=== PATIENT | male | born 1950 | race Caucasian/White ===

== ENCOUNTER → 2017-04-10 | Outpatient (CLI) | payer MEDICARE, BC ==
[2017-04-10 15:05] LABS: Basophils % (A) 1 %; Eosinophils # (A) 0.2 k/uL (0-0.7); Eosinophils % (A) 4 %; HCT 48.3 % (39.0-53.0); HGB 16.2 gm/dL (13.0-17.5); Lymphocytes % (A) 20 %; MCH 31.1 pg (25.0-35.0); MCHC 33.5 g/dL (31.0-37.0); MCV 92.9 fL (80.0-100.0); Mean Platelet Volume 6.9; Monocytes # (A) 0.5 k/uL (0-1.0); Monocytes % (A) 10 %; Neutrophils % (A) 63 %; Platelet Count 156 k/uL (150-450); WBC 4.7 k/uL (3.8-10.6)
[2017-04-10 15:22] LABS: Anion Gap 8 mmol/L; Blood Urea Nitrogen 19 mg/dL (9-20); Calcium 9.6 mg/dL (8.4-10.2); Carbon Dioxide 30 mmol/L (22-30); Chloride 104 mmol/L (98-107); Glucose 98 mg/dL (74-99); Potassium 4.5 mmol/L (3.5-5.1); Sodium 142 mmol/L (137-145)
== END | disposition home or self-care (01) ==
LOC: LABWHC1 14:19
PROVIDERS: ATTEND Dermatology
DX: L20.89 Other atopic dermatitis (principal)
CPT/HCPCS: 36415; 80048; 85025; 86480

== ENCOUNTER 2022-04-10 13:54 | Emergency (ER) | payer MEDICARE, BC ==
[2022-04-10 14:13] VITALS: TEMP 98.7
--- NOTE | 2022-04-10 14:14 | ED ---
General Adult HPI - General Source: patient, RN notes reviewed Mode of arrival: ambulatory Limitations: no limitations <Chriss Morris - Last Filed: 04/10/22 14:13> - General Source: patient, RN notes reviewed Mode of arrival: ambulatory Limitations: no limitations <Toyin Samuels - Last Filed: 04/14/22 18:33> - General Stated complaint: Covid+,YI Time Seen by Provider: 04/10/22 14:13 - History of Present Illness Initial comments: 69-year-old male presents emergency Department chief complaint of cough, shortness breath and 6-7 days. Patient states that he was seen at urgent care was placed on Augmentin. Patient states that he does some so for covert twice yesterday is positive. Patient states she's having some shortness of breath. Patient does admit that he's had open-heart surgery family is concerned. Patient denies any GI symptoms. Denies recent fever but states that he's felt hot and cold, mildly productive cough, shortness breath. (Chriss Morris) 69-year-old male presents to the emergency Department with complaints of cough and worsening shortness of breath with activity. States he has been feeling poorly for over a week. Has been taking the antibiotic as prescribed by urgent care. Reports symptoms have not improved. Decided to Covid test at home and it was positive. Complains of poor appetite, but has not had nausea or vomiting. Does have a cardiac history. Denies fever, headache, chest pain, abdominal pain, vomiting, diarrhea, dysuria. (Toyin Samuels) - Related Data Home Medications Medication Instructions Recorded Confirmed Aspirin EC [Ecotrin Low Dose] 81 mg PO DAILY 04/10/22 04/10/22 Atorvastatin [Lipitor] 20 mg PO HS 04/10/22 04/10/22 Clopidogrel [Plavix] 75 mg PO DAILY 04/10/22 04/10/22 Dupilumab [Dupixent Syringe] 300 mg SQ Q14D 04/10/22 04/10/22 Nitroglycerin Sl Tabs [Nitrostat] 0.4 mg SUBLINGUAL Q5M PRN 04/10/22 04/10/22 PARoxetine HCL [PARoxetine HCL Cr] 37.5 mg PO DAILY 04/10/22 04/10/22 Tamsulosin [Flomax] 0.4 mg PO HS 04/10/22 04/10/22 amLODIPine [Norvasc] 5 mg PO HS 04/10/22 04/10/22 lisinopriL [Zestril] 5 mg PO DAILY 04/10/22 04/10/22 Allergies Allergy/AdvReac Type Severity Reaction Status Date / Time Iodinated Contrast Media Allergy Rash/Hives Verified 04/10/22 18:36 amoxicillin [From Augmentin] AdvReac Nausea & Verified 04/10/22 18:36 Vomiting clavulanic acid AdvReac Nausea & Verified 04/10/22 18:36 [From Augmentin] Vomiting Review of Systems ROS Other: All systems not noted in ROS Statement are negative. <Chriss Morris - Last Filed: 04/10/22 14:13> ROS Other: All systems not noted in ROS Statement are negative. <Toyin Samuels - Last Filed: 04/14/22 18:33> ROS Statement: Those systems with pertinent positive or pertinent negative responses have been documented in the HPI. General Exam Limitations: no limitations General appearance: alert, in no apparent distress ENT exam: Present: normal exam, normal oropharynx, mucous membranes moist Neck exam: Present: normal inspection, full ROM. Absent: tenderness, meningismus, lymphadenopathy Respiratory exam: Present: normal lung sounds bilaterally. Absent: respiratory distress, wheezes, rales, rhonchi, stridor, chest wall tenderness Cardiovascular Exam: Present: regular rate, normal rhythm, normal heart sounds. Absent: systolic murmur, diastolic murmur, rubs, gallop, clicks GI/Abdominal exam: Present: soft, normal bowel sounds. Absent: distended, tenderness, guarding, rebound, rigid Neurological exam: Present: alert, oriented X3 Psychiatric exam: Present: normal affect, normal mood Skin exam: Present: warm, dry, intact, normal color. Absent: rash <Toyin Samuels - Last Filed: 04/14/22 18:33> Course <Toyin Samuels - Last Filed: 04/14/22 18:33> Vital Signs 04/10/22 04/10/22 14:11 20:21 Temperature 98.7 F Pulse Rate 71 67 Respiratory 20 18 Rate Blood Pressure 120/80 148/96 O2 Sat by Pulse 99 99 Oximetry - Reevaluation(s) Reevaluation #1: 04/10/22 19:30 Patient updated on results. Continues to be well-appearing and verbalizes readiness for discharge. Strict return parameters and follow-up care discussed in detail. Patient and spouse verbalized understanding and agreed with this plan. Patient is not a candidate for Paxlovid as his symptoms began more than a week ago. He is not having any wheezing so albuterol is not indicated. (Toyin Samuels) Medical Decision Making - Lab Data Result diagrams: 04/10/22 14:33 04/10/22 14:33 - EKG Data EKG shows normal: sinus rhythm Rate: normal - Radiology Data Radiology results: report reviewed, image reviewed <Toyin Samuels - Last Filed: 04/14/22 18:33> - Medical Decision Making 71-year-old male with a past medical history of CAD and hypertension presents to the emergency department for evaluation after testing positive for Covid this morning. Upon exam, patient is well-appearing and in no acute distress. Lung sounds are clear to auscultation and patient has no dyspnea on exertion or at rest. No anginal chest pain. Tolerating oral intake without difficulty. EKG shows normal sinus rhythm with a first-degree AV block and no acute ST segment elevation or depression. Laboratory studies were obtained. No leukocytosis. Mild hyponatremia. Troponin is negative. Chest x-ray shows no consolidation or infiltrate suggestive of pneumonia. Vital signs are stable. Patient is outside of the timeframe for Paxlovid. He is not having any wheezing or tightness in his chest therefore albuterol is not an option. Patient will be discharged home with instructions on symptomatic management and encouraged follow-up with his PCP for a recheck. Strict return parameters were discussed in detail. Patient verbalizes understanding and agrees with this plan. Attending: Bhanu. Was pt. sent in by a medical professional or institution? @ -No Did you speak to anyone other than the patient for history? @ -No Did you review nursing and triage notes? @ -Yes, agree Were old charts reviewed? @ -No previous visits from which to compare Differential Diagnosis? @ -Asthma, COPD, CHF, pneumonia, PE, viral URI, this is not meant to be an exhaustive list EKG interpreted by me (3pts min.)? @ -EKG is interpreted by me shows sinus rhythm with first-degree AV block. No evidence of acute ischemic changes including ST segment depression or elevation. X-rays interpreted by me (1pt min.)? @ -Chest x-ray as interpreted by me shows no evidence of focal consolidation or infiltrate CT interpreted by me (1pt min.)? @ -Not applicable U/S interpreted by me (1pt. min.)? @ -Not applicable What testing was considered but not performed? (CT, X-rays, U/S, labs)? Why? @ - Considered D-Dimer but shortness of breath is minimal and patient is on anticoagulant therapy. What meds were considered but not given? Why? @ -Paxlovid considered but outside window of treatment. Albuterol considered but patient is not experiencing any wheezing or chest tightness. Did you discuss the management of the patient with other professionals? @ -None Did you reconcile home meds? @ -Yes Was smoking cessation discussed for >3mins.? @ -No Was critical care preformed (if so, how long)? @ -No Were there social determinants of health that impacted care today? How? (Homelessness, low income, unemployed, alcoholism, drug addiction, transportation, low edu. Level, literacy, decrease access to med. care, prison, rehab)? @ -No Was there de-escalation of care discussed even if they declined? (Discuss DNR or withdrawal of care, Hospice)? @ -No What co-morbidities impacted this encounter? (DM, HTN, Smoking, COPD, CAD, Cancer, CVA, Hep., AIDS, mental health diagnosis, sleep apnea, morbid obesity)? @ -CAD Was patient admitted / discharged? @ -Discharged Undiagnosed new problem with uncertain prognosis? @ -None Drug Therapy requiring intensive monitoring for toxicity (Heparin, Nitro, Insulin, Cardizem)? @ -None Were any procedures done? @ -None Diagnosis/symptom? @ -Shortness of breath Acute, or Chronic, or Acute on Chronic? @ -Acute Uncomplicated (without systemic symptoms) or Complicated (systemic symptoms)? @ -Uncomplicated Side effects of treatment? @ -None Exacerbation, Progression, or Severe Exacerbation] @ -No Poses a threat to life or bodily function? @ -No (Toyin Samuels) - Lab Data Lab Results 04/10/22 04/10/22 04/10/22 Range/Units 14:33 14:33 18:37 WBC 4.2 (3.8-10.6) k/uL RBC 5.28 (4.30-5.90) m/uL Hgb 16.3 (13.0-17.5) gm/dL Hct 46.1 (39.0-53.0) % MCV 87.2 (80.0-100.0) fL MCH 30.9 (25.0-35.0) pg MCHC 35.4 (31.0-37.0) g/dL RDW 12.8 (11.5-15.5) % Plt Count 145 L (150-450) k/uL MPV 8.2 Neutrophils % 69 % Lymphocytes % 14 % Monocytes % 15 % Eosinophils % 1 % Basophils % 1 % Neutrophils # 2.9 (1.3-7.7) k/uL Lymphocytes # 0.6 L (1.0-4.8) k/uL Monocytes # 0.6 (0-1.0) k/uL Eosinophils # 0.0 (0-0.7) k/uL Basophils # 0.0 (0-0.2) k/uL Sodium 134 L (137-145) mmol/L Potassium 3.9 (3.5-5.1) mmol/L Chloride 105 (98-107) mmol/L Carbon Dioxide 19 L (22-30) mmol/L Anion Gap 10 mmol/L BUN 19 (9-20) mg/dL Creatinine 0.76 (0.66-1.25) mg/dL Est GFR (CKD-EPI)AfAm >90 (>60 ml/min/1.73 sqM) Est GFR (CKD-EPI)NonAf >90 (>60 ml/min/1.73 sqM) Glucose 91 (74-99) mg/dL Calcium 8.8 (8.4-10.2) mg/dL Total Bilirubin 1.1 (0.2-1.3) mg/dL AST 31 (17-59) U/L ALT 25 (4-49) U/L Alkaline Phosphatase 120 (38-126) U/L Troponin I <0.012 (0.000-0.034) ng/mL Total Protein 6.1 L (6.3-8.2) g/dL Albumin 3.9 (3.5-5.0) g/dL - EKG Data EKG Comments: EKG obtained at 1442 shows sinus rhythm with first-degree AV block and nonspecific ST and T wave abnormality. Ventricular rate 72, OK interval 261, QRS duration 101, QT/QTC 414/4:30. No previous EKGs for comparison. I see no evidence of acute ischemic changes. (Toyin Samuels) - Radiology Data Interpreted by me: Chest x-ray as interpreted by me shows no acute findings. (Toyin Samuels) Two-view chest x-ray was obtained. Report was reviewed in its entirety. Impression per Dr. Munguia is #1. No acute process. #2. Correlate for COPD. (Toyin Samuels) Disposition <Chriss Morris - Last Filed: 04/10/22 14:13> Is patient prescribed a controlled substance at d/c from ED?: No Time of Disposition: 19:52 <Toyin Samuels - Last Filed: 04/14/22 18:33> Clinical Impression: Shortness of breath Disposition: HOME SELF-CARE Condition: Stable Instructions (If sedation given, give patient instructions): COVID-19 (Coronavirus Disease 2019) (ED) Additional Instructions: Increase fluid intake. Rest. Eat small more frequent meals. Continue taking your home medications as prescribed. Follow-up with your PCP when you return home to [place]. Return to the emergency department if you develop any chest pain, worsening shortness of breath, or any other concerning symptoms. Referrals: None,Stated [Primary Care Provider] - 1-2 days
--- NOTE | 2022-04-10 14:41 | XR ---
EXAMINATION TYPE: XR chest 2V DATE OF EXAM: 04/10/2022 COMPARISON: NONE TECHNIQUE: PA and lateral views submitted. HISTORY: SOB FINDINGS: The lungs are clear and there is no pneumothorax, pleural effusion, or focal pneumonia. Postoperati ve change. Bilateral nipple shadows are seen. Hyperinflation suggests COPD. Coronary artery stenting. Hypertrophic and degenerative changes in the spine. No overt failure. Arthropathy of the shoulders. IMPRESSION: 1. No acute process. 2. Correlate for COPD.
[2022-04-10 14:53] LABS: Basophils % (A) 1 %; Eosinophils % (A) 1 %; HCT 46.1 % (39.0-53.0); HGB 16.3 gm/dL (13.0-17.5); Lymphocytes # (A) 0.6 k/uL (1.0-4.8); Lymphocytes % (A) 14 %; MCH 30.9 pg (25.0-35.0); MCHC 35.4 g/dL (31.0-37.0); MCV 87.2 fL (80.0-100.0); Mean Platelet Volume 8.2; Monocytes # (A) 0.6 k/uL (0-1.0); Monocytes % (A) 15 %; Neutrophils # (A) 2.9 k/uL (1.3-7.7); Neutrophils % (A) 69 %; Platelet Count 145 k/uL (150-450); RBC 5.28 m/uL (4.30-5.90); RDW 12.8 % (11.5-15.5); WBC 4.2 k/uL (3.8-10.6)
[2022-04-10 15:02] LABS: ALT 25 U/L (4-49); AST 31 U/L (17-59); African American GFR (CKD) >90 (>60 ml/min/1.73 sqM); Albumin 3.9 g/dL (3.5-5.0); Alkaline Phosphatase 120 U/L (38-126); Blood Urea Nitrogen 19 mg/dL (9-20); Calcium 8.8 mg/dL (8.4-10.2); Carbon Dioxide 19 mmol/L (22-30); Glucose 91 mg/dL (74-99); Non-African American GFR(CKD) >90 (>60 ml/min/1.73 sqM); Potassium 3.9 mmol/L (3.5-5.1); Sodium 134 mmol/L (137-145); Total Bilirubin 1.1 mg/dL (0.2-1.3); Total Protein 6.1 g/dL (6.3-8.2)
[2022-04-10 15:08] LABS: Anion Gap 10 mmol/L; Chloride 105 mmol/L (98-107)
[2022-04-10 20:23] VITALS: BP 148/96; PULSE 67; RESP 18
== END 2022-04-10 20:22 | disposition home or self-care (01) ==
LOC: EC 13:54
DX: U07.1 COVID-19 (principal); I10 Essential (primary) hypertension; I25.10 Atherosclerotic heart disease of native coronary artery without angina pectoris; Z88.0 Allergy status to penicillin; Z91.041 Radiographic dye allergy status; Z88.1 Allergy status to other antibiotic agents; Z79.899 Other long term (current) drug therapy
CPT/HCPCS: 36415; 71046; 80053; 84484; 85025; 93005; 99285